=== PATIENT | male | born 1975 | race Caucasian/White ===

== ENCOUNTER 2017-12-16 20:10 | Emergency (ER) | payer OTHER ==
[~2017-12-16] VITALS: Ht 177.8 cm; Wt 80.7 kg
[2017-12-16] MEDS ORDERED: KEFLEX500 MG PO (22:12)
[2017-12-16 22:20] VITALS: BP 130/80
== END 2017-12-16 22:25 ==
LOC: EME 20:10
PROC: 3E0234Z Introduction of Serum, Toxoid and Vaccine into Muscle, Percutaneous Approach (ICD-10-PCS; principal; 2017-12-16)
PROC: 0HQ1XZZ Repair Face Skin, External Approach (ICD-10-PCS; principal; 2017-12-16)
DX: S01.411A Laceration without foreign body of right cheek and temporomandibular area, initial encounter (principal); X99.8XXA Assault by other sharp object, initial encounter; Y92.149 Unspecified place in prison as the place of occurrence of the external cause; Y07.59 Other non-family member, perpetrator of maltreatment and neglect; Z23 Encounter for immunization
CPT/HCPCS: 99281; 99284